=== PATIENT | female | born 1960 | race Caucasian/White ===

== ENCOUNTER 2018-07-26 11:06 | Emergency (ER) | payer MEDICARE, OTHER ==
[2018-07-26] MEDS: LORAZEPAM 0.5 MG TAB PO (12:20)
== END 2018-07-26 12:45 | disposition home or self-care (01) ==
LOC: E/R 11:06
DX: F41.9 Anxiety disorder, unspecified (principal)
CPT/HCPCS: 93005; 99283-25

== ENCOUNTER 2018-12-08 02:53 | Emergency (ER) | payer MEDICARE, OTHER ==
[2018-12-08] MEDS: SOD CHLORIDE 0.9% 1,000 ML IV (03:29)
[2018-12-08] MEDS: LORAZEPAM 2 MG INJ IV ×2 (03:32→04:52)
[2018-12-08 03:38] LABS: ADD MAN DIFF? NO
[2018-12-08 04:03] LABS: ALANINE AMINOTRANSFERASE 21 IU/L (13-69); ALBUMIN 4.9 g/dl (3.3-4.9); ALKALINE PHOSPHATASE 116 IU/L (42-121); ANION GAP 12 (5-13); ASPARTATE AMINO TRANSFERASE 23 IU/L (15-46); BILIRUBIN,INDIRECT 0.4 mg/dl (0-1.1); BILIRUBIN,TOTAL 0.4 mg/dl (0.2-1.3); BLOOD UREA NITROGEN 12 mg/dl (7-20); CALCIUM 10.9 mg/dl (8.4-10.2); CARBON DIOXIDE 23 mmol/L (21-31); CHLORIDE 111 mmol/L (97-110); CREATININE 0.56 mg/dl (0.44-1.00); Estimated GFR > 60 mL/min (>60); GLUCOSE 188 mg/dl (70-220); LIPASE 62 U/L (23-300); POTASSIUM 3.4 mmol/L (3.5-5.1); SODIUM 146 mmol/L (135-144); TOTAL PROTEIN 8.4 g/dl (6.1-8.1)
[2018-12-08 04:06] LABS: WHITE BLOOD COUNT 13.2 10^3/ul (4.8-10.8)
[2018-12-08 04:06] LABS: BASOPHIL # 0.1 10^3/ul (0.0-0.1); BASOPHILS % 0.4 % (0.0-2.0); EOSINOPHILS # 0.1 10^3/ul (0.0-0.5); EOSINOPHILS % 0.6 % (0.0-7.0); HEMATOCRIT 41.5 % (37.0-47.0); HEMOGLOBIN 13.7 g/dl (12.0-16.0); LYMPHOCYTES # 4.4 10^3/ul (0.8-2.9); LYMPHOCYTES % 33.3 % (15.0-51.0); MEAN CORPUSCULAR HEMOGLOBIN 29.7 pg (29.0-33.0); MEAN CORPUSCULAR VOLUME 89.8 fl (82.0-101.0); MEAN PLATELET VOLUME 10.7 fl (7.4-10.4); MONOCYTE # 0.9 10^3/ul (0.3-0.9); MONOCYTES % 6.6 % (0.0-11.0); NEUTROPHIL # 7.7 10^3/ul (1.6-7.5); NEUTROPHILS % 58.3 % (39.0-77.0); PLATELET COUNT 267 10^3/UL (140-415); RED BLOOD COUNT 4.62 10^6/ul (4.20-5.40); RED CELL DISTRIBUTION WIDTH 13.6 % (11.5-14.5)
[2018-12-08 04:14] LABS: TROPONIN-I < 0.012 ng/ml (0.000-0.120)
[2018-12-08] MEDS: POTASSIUM CHLORIDE (SR) 20 MEQ TAB PO (04:52)
[2018-12-08] MEDS: LACTATED RINGER'S 1,000 ML IV (04:53)
[2018-12-08 05:07] LABS: AADO2 Arterial 114.3 mmHg (7.0-24.0); Allen Test ACCEPTAB; Arterial Base Excess -1.6 mmol/L (-3.0-3); Arterial Blood Gas Oxygen Sat 97.7 mmHG (95.0-98.0); Arterial COHb 1.2 % (0.0-3.0); Arterial Fraction of Oxyhgb 96.5 % (93.0-99.0); Arterial HCO3 22.4 mmol/L (22.0-26.0); Arterial MetHb 0 % (0.0-1.5); Arterial pCO2 35.7 mmhg (35-45); MODE NASAL CANNULA; Site Right Radial
== END 2018-12-08 06:35 | disposition home or self-care (01) ==
LOC: E/R 02:53
DX: T43.591A Poisoning by other antipsychotics and neuroleptics, accidental (unintentional), initial encounter (principal); F41.9 Anxiety disorder, unspecified; E87.6 Hypokalemia; R40.2142 Coma scale, eyes open, spontaneous, at arrival to emergency department; R40.2362 Coma scale, best motor response, obeys commands, at arrival to emergency department; R40.2252 Coma scale, best verbal response, oriented, at arrival to emergency department; R00.2 Palpitations
CPT/HCPCS: 36415; 36600; 71045; 80053; 82803; 83690; 84484; 85025; 93005; 96374; 96376; 99285-25